=== PATIENT | female | born 2000 | race Caucasian/White ===

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

== ENCOUNTER 2021-01-31 16:00 | Outpatient (RCR) | payer MEDICAID, SELFPAY | END 2021-01-31 23:59 | disposition home or self-care (01) | LOC: DC 16:00 | PROVIDERS: PCP Dentist; Visit Provider Obstetrics & Gynecology | DX: O24.410 Gestational diabetes mellitus in pregnancy, diet controlled (principal); Z3A.00 Weeks of gestation of pregnancy not specified | CPT/HCPCS: 97802 ==

== ENCOUNTER 2021-03-11 05:40 | Inpatient (IN) | payer MEDICAID, SELFPAY ==
[2021-03-11] VITALS (22 sets, daily range): BP systolic 103–140; BP diastolic 46–82; PULSE 71–98; RESP 12–22; TEMP 36.1–36.9; O2SAT 95–99; BMI 38.4
[2021-03-11] MEDS: Lactated Ringers 1,000 ML 999 ML IV (06:00)
[2021-03-11 06:09] LABS: Absolute Lymphocyte Count 2.45 X10^3/uL (0.83-4.51); Absolute Neutrophil Count 6.7 X10^3/uL (2.0-7.7); Basophil# 0.02 X10^3/uL; Basophil% 0.2 % (0-1); Eosinophil# 0.08 X10^3/uL; Eosinophils% 0.8 % (0-5); Hematocrit 37.6 % (37-47); Lymphocyte # 2.45 X10^3/ul (0.83-4.51); Lymphocyte % 24.5 % (19-41); Mean Corp Hgb Conc 31.9 g/dL (32-36); Mean Corpuscular Hgb 27.5 pg (27.0-32.0); Mean Platelet Vol. 10.9 fl (6.2-12.0); Monocyte# 0.75 X10^3/uL; Monocyte% 7.5 % (0-10); NRBC Flagged by Analyzer 0 % (0-5); Neutrophil # 6.68 X10^3/uL (2.7-7.7); Neutrophil % 66.6 % (47-70); Platelet Count 269 K/mm3 (150-450); RBC Distribution Width CV 13.7 % (11.6-14.6); RBC Distribution Width SD 42.4 fl (35.1-43.9); Red Blood Count 4.37 M/mm3 (4.2-5.4)
[2021-03-11 06:11] LABS: Bedside Glucose 86 mg/dL (70-110)
[2021-03-11] MEDS: Acetaminophen 500 MG Tablet 1000 MG PO ×3 (06:37→18:43)
[2021-03-11 07:01] LABS: Amphetamine Urine VISTA NEGATIVE (<1000 ng/mL); Barbiturate Urine VISTA NEGATIVE (< 200 ng/mL); Benzodiazepine Urine VISTA NEGATIVE (< 200 ng/mL); Cocaine Urine VISTA NEGATIVE (< 300 ng/mL); Ecstacy Urine VISTA NEGATIVE (< 500 ng/mL); Methadone Urine VISTA NEGATIVE (< 300 ng/mL); PCP Urine VISTA NEGATIVE (< 25 ng/mL); THC Urine VISTA NEGATIVE (< 50 ng/mL); Vista UDS pH Range 6
[2021-03-11] MEDS: Lactated Ringers 1,000 ML 150 ML IV (07:01)
[2021-03-11] MEDS: Sodium Citrate/Citric Acid 30 ML UDC PO (07:06)
--- NOTE | 2021-03-11 07:36 | PCM.HP.OB ---
HPI - General General Date of Admission: 03/11/21 HPI Narrative FOZIA CRAWFORD, is a 20 F who presents for repeat . Maternal Data Information Final NUVIA: 03/26/21 Gestational age: 37&6 [facility] Medical History (Updated 03/11/21 @ 07:[address] Eliot Fisher MD) Anxiety Depression Gestational diabetes Home Medications Prenatabs FA 1 tab PO DAILY 11/14/17 [History Last Taken 03/10/21] aspirin [Jocelyn Childrens Aspirin] 81 mg PO DAILY 03/11/21 [History Last Taken 03/09/21] insulin NPH isoph U-100 human [Novolin N NPH U-100 Insulin] 10 unit SUBCUT BREAKFAST 03/11/21 [History Last Taken 03/10/21] insulin NPH isoph U-100 human [Novolin N NPH U-100 Insulin] 16 unit SUBCUT QHS 03/11/21 [History Last Taken 03/10/21] Allergy/AdvReac Type Severity Reaction Status Date / Time cefprozil AdvReac Rash Verified 11/16/17 13:39 Surgical History (Updated 03/11/21 @ 06:24 by Viry Ventura) Previous section Social History Smoking Status: Never smoker History Elective abortions Hx Para 1 Spontaneous abortions Hx # Term Pregnancies Ectopic pregnancies Hx # Pregnancies Multiple births # of living children Vital Signs Vital Signs Vital Signs: 03/11/21 05:40 Temperature 97.4 F L Temperature Source Temporal Pulse Rate 95 Respiratory Rate 18 Blood Pressure 140/82 H Blood Pressure Mean 101 Blood Pressure Source Monitor Blood Pressure Position Semi-Fowlers Blood Pressure Location Left Arm Oxygen Delivery Method Room Air Weight Weight: 210 lb Body Mass Index (BMI) 38.4 Labs Labs Labs: Blood Type A POSITIVE Antibody Screen NEGATIVE Hct 37.6 % (37-47) Hgb 12.0 g/dL (12.0-15.0) Rhogam given: No Miscellaneous Test See [facility] prenatals Assessment & Plan (1) Gestational diabetes mellitus (GDM) requiring insulin: (2) Encounter for maternal care for low transverse scar from repeat delivery: COMMENT: 37&6 PLAN: Admit to L&D Repeat GDM - PP glucose monitoring Routine care Social work consult
--- NOTE | 2021-03-11 08:31 | EX.PCM.OBRPT ---
Maternal Data Information Final NUVIA: 03/[birth year]21 Details Operative Information Date of Procedure: 03/11/21 Pre-Operative Diagnosis: (1) Prior section (2) Uncontrolled gestational diabetes (3) 37&6 week Post-Operative Diagnosis: Same Indications for : Repeat Elective Classification: Scheduled Procedure Type: low transverse sales planning coordinator #1: Jay Cash Type of Anesthesia: Spinal Antibiotic Given: Clindamycin 600mg IV x1 and Gentamicin 1.5mg/kg IV x1 Drain: Nicolas to straight drain Estimated Blood Loss: 700ml Fluids Replaced: 1000ml Procedure Start Time: 07:59 Procedure Stop Time: 08:38 Findings Description of Procedure: The patient was taken to the operating room where spinal anesthesia was placed. She was prepped and draped in the dorsal supine position with a leftward tilt. A Pfannenstiel skin incision was made approximately 2 cm above the symphysis pubis and carried through to underlying layer fascia with the scalpel. The fascia was incised incised in the midline and extended laterally with the Pettit scissors. The rectus muscles were in the midline and the peritoneum was entered carefully and bluntly. The peritoneal incision was stretched and the bladder blade was placed. The uterine incision was made in a low transverse fashion with the scalpel and extended superiorly and inferiorly with blunt dissection. The infant's head was brought to the incision in the flexed position and delivered without difficulty (after using bandage scissors to extend the incision on the right side by cutting the rectus muscles carefully). The remainder of the was delivered with gentle traction and fundal pressure in the standard fashion. The cord was clamped and cut as the infant was stimulated. Cord clamping was delayed. The was handed off to the waiting nursing staff. The placenta was delivered with fundal massage and gentle traction in the standard fashion. The uterus was unable to be exteriorized due to adhesions thus was cleared of all clots and debris while in the pelvis. The uterine incision was closed with sa #1 Vicryl suture in a running locked fashion. Monocryl suture was used in an imbricating fashion. The incision was examined and was found to be hemostatic. After irrigating suleman was placed over the uterine incision as some tissue was denuded. The rectus muscles were examined and any bleeding was Bovie cauterized. The right rectus muscles were reapproximated using vicryl. The surgical teams outer gloves were then changed. The rectus fascia was examined and any bleeding was Bovie cauterized and the rectus fascia was closed with PDS suture in a running standard fashion. The subcutaneous tissue was examining and any bleeding was Bovie cauterized. The subcutaneous tissue was reapproximated with 3-0 Vicryl suture. The skin was closed in a subcuticular fashion. All sponge, lap, and needle counts were correct. The patient was taken to her room for recovery in a stable condition. Presentation: Positive for Vertex Amniotic Membrane Rupture Type: Artificial Amniotic Fluid Description: Clear Placental Delivery Description: Expressed Placenta Disposition: [facility] Cord Vessel Description: 3 Vessels Cord Entanglement: None A Gender: Female (Carlita) (1 minute): 9 (5 minute): 9 Delayed Cord Clamping: Yes
[2021-03-11] MEDS: Oxytocin 30 units/NS 500 ml 30 UNITS/500 ML IV.SOLN 167 UNITS IV (08:50)
[2021-03-11] MEDS: Ketorolac 30 MG/ML Syringe IV ×3 (09:11→21:45)
[2021-03-11] MEDS: Lactated Ringers 1,000 ML 100 ML IV (12:03)
--- NOTE | 2021-03-11 12:25 | NURSING ---
Patient's affect is flat. When asked questions by this RN, patient gives one word responses.
--- NOTE | 2021-03-11 14:39 | NURSING ---
Report given to Maria D Vaughn RN who will now assume care of this couplet at this time.
[2021-03-11] MEDS: 0.9% Saline Lock 10 ML Syringe IV ×2 (18:43→21:45)
[2021-03-11] MEDS: Enoxaparin 40 MG/0.4 ML Syringe SC (21:45)
[2021-03-12] VITALS (8 sets, daily range): BP systolic 109–130; BP diastolic 58–68; PULSE 62–84; RESP 16–18; TEMP 36–36.9; O2SAT 97–100
[2021-03-12] MEDS: Acetaminophen 500 MG Tablet 1000 MG PO ×3 (00:38→13:38)
[2021-03-12] MEDS: Senna/Docusate Sodium 1 Tablet PO (00:46)
--- NOTE | 2021-03-12 02:18 | NURSING ---
This RN assuming care of patient and infant at this time. Report received from Elina Perez RN
[2021-03-12] MEDS: Ketorolac 30 MG/ML Syringe IV (03:32)
[2021-03-12 06:04] LABS: Hematocrit 38.7 % (37-47); Hemoglobin 12.4 g/dL (12.0-15.0); Mean Corpuscular Hgb 27.8 pg (27.0-32.0); Mean Corpuscular Volume 86.8 fL (81-99); Mean Platelet Vol. 10.7 fl (6.2-12.0); Platelet Count 271 K/mm3 (150-450); RBC Distribution Width SD 43.9 fl (35.1-43.9); Red Blood Count 4.46 M/mm3 (4.2-5.4); White Blood Count 8.3 K/mm3 (4.4-11.0)
[2021-03-12 06:05] LABS: Bedside Glucose 90 mg/dL (70-110)
--- NOTE | 2021-03-12 06:10 | NURSING ---
Fasting blood sugar obtained by this RN for result of 90.
[2021-03-12] MEDS: Enoxaparin 40 MG/0.4 ML Syringe SC (09:39)
[2021-03-12] MEDS: Ibuprofen 600 MG Tablet PO ×2 (09:40→15:42)
--- NOTE | 2021-03-12 15:42 | PCM.DC.SUM ---
Providers Date of Admission: 03/11/21 Primary Care Physician: Dr. Ashley Ellsworth MD Reason For Visit: REPEAT C SECTION Diagnosis Discharge Diagnosis (1) Gestational diabetes mellitus (GDM) requiring insulin: Status: Acute Code(s): O24.414 - Gestational diabetes mellitus in , insulin controlled (2) Encounter for maternal care for low transverse scar from repeat delivery: Status: Acute Code(s): O34.211 - Maternal care for low transverse scar from previous delivery Medications at Discharge Home Medications Prenatabs FA 1 tab PO DAILY 11/14/17 Hospital Course Operations section (Repeat) Summary of Care Provided Hospital Course: Patient here for repeat C/S. Hospital course uneventful. Physical Exam Const alert, oriented x3 and no apparent distress General Appearance: cooperative Orientation / Consciousness: awake Exam Limitations: no limitations HEENT normocephalic Head and Scalp: normal to inspection Eyes General Eye: normal appearance of both eyes Neck full ROM and no lymphadenopathy Lymph Lymphatic: no lymphadenopathy noted Chest inspection of chest normal Resp normal respiratory effort, normal air movement and clear to auscultation bilaterally Effort and Inspection: able to speak in complete sentences and symmetric chest movement Cardio regular rate and regular rhythm GI normal to inspection, nondistended, normoactive bowel sounds Extremity full ROM and no calf tenderness Skin no rashes or lesions noted Skin Narrative: Dressing dry and intact General Skin Exam: no breakdown Neuro oriented x3 and CN's II-XII intact bilaterally Psych denies suicidal ideation Appearance: appropriate Activity / Motor Behavior: appropriate eye contact Mood & Affect: tearful and flat affect Thought Process: normal thought process Thought Content: normal thought content Weight / BMI Weight Weight: 210 lb Body Mass Index (BMI) 38.4 ABG / Lab / Microbiology Data Result Diagrams: 03/12/21 05:55 Laboratory: Laboratory Results - last 24 hr 03/12/21 03/12/21 05:55 05:55 WBC 8.3 RBC 4.46 Hgb 12.4 Hct 38.7 MCV 86.8 MCH 27.8 MCHC 32.0 RDW Std Deviation 43.9 RDW Coeff of Gina 14.0 Plt Count 271 MPV 10.7 POC Glucose 90 Microbiology: Microbiology 03/11/21 06:10 Mucosa - Nose SARS-CoV-2 Antigen (Rapid) - Final D/C Instructions Discharge Diet: No restrictions May resume sexual activity in: 6-8 weeks Weight Bearing Status: Weight bearing as tolerated Lifting Restrictions: 20 lbs Call your doctor if your incision/area has: Continuous Slow Oozing, Increased Pain/ Swelling, Increased Redness, Foul Smelling Discharge and Swelling at the incision site Call your doctor if you observe: Fever of 101 or Higher, Inability to urinate, Using more than 1 pad per hour, Shortness of breath, Chest pain, Calf discomfort and Uncontrolled pain Remove Dressing in: 5 days Cleanse incision/area with: Soap & Water and Keep Dressing Clean & Dry When: 1 week in office for incision check or sooner if needed 6 weeks Meaningful Use Info Meaningful Use Diagnoses (Choose all that apply): None applicable Discharge Plan Admission Admit Date/Time: 03/11/21 05:40 Primary Reason for Your Visit: Repeat C/S Attending Provider: Eliot Fisher Primary Care Provider: Ashley Ellsworth Instructions Patient Instructions: Depression, Depression: Treatment, Gestational Diabetes After ... Additional Instructions / Restrictions: Patient needs to be seen in office in 1 week for incision check Discharge Orders/Prescriptions Prescriptions: Continued Prenatabs FA 1 TABLET tablet 1 tab PO DAILY RF: 0 Discontinued Novolin N NPH U-100 Insulin 100 unit/mL Suspension 16 unit SUBCUT QHS RF: 0 Novolin N NPH U-100 Insulin 100 unit/mL Suspension 10 unit SUBCUT BREAKFAST RF: 0 aspirin [Jocelyn Childrens Aspirin] 81 mg Tablet,Chewable 81 mg PO DAILY RF: 0 Referrals / Follow Up: Ashley Ellsworth MD [Primary Care Provider] - Disposition Disposition (needs filled in before D/C Order can be placed): Home, Self Care
== END 2021-03-12 17:50 | disposition home or self-care (01) | DRG 540 ==
PROVIDERS: Admitting Provider Obstetrics & Gynecology; PCP Pediatrics; Visit Provider Obstetrics & Gynecology
PROC: 10D00Z1 Extraction of Products of Conception, Low, Open Approach (ICD-10-PCS; CPT 59514; principal; 2021-03-11 07:15)
DX: O34.211 Maternal care for low transverse scar from previous cesarean delivery (principal); Z3A.37 37 weeks gestation of pregnancy; Z37.0 Single live birth; O24.424 Gestational diabetes mellitus in childbirth, insulin controlled; Z79.82 Long term (current) use of aspirin; Z79.4 Long term (current) use of insulin
CPT/HCPCS: 80307; 82962; 85025; 85027; 86850; 86900; 86901; 87426; 99218; 99251; J7120; A4216; G0378; G0463; J2405

== ENCOUNTER 2022-10-21 21:39 | Emergency (ER) | payer MEDICAID, SELFPAY ==
[2022-10-21 21:40] VITALS: BP 126/63; PULSE 106; RESP 16; TEMP 36.4; O2SAT 97; BMI 32.9
--- NOTE | 2022-10-21 22:05 | EDS_ITS ---
HPI History of Present Illness Chief Complaint: Nausea/Vomiting Detail of Chief Complaint: Abdominal pain with nausea, vomiting and diarrhea that started at 0430 Informant: patient Onset/Context/Timing Onset: Today Context: Sudden Onset Timing: Intermittent Quality: Colicky Location: Generalized Current Severity: Mild Maximum Severity: Moderate Worsened by: Vomiting diarrhea Relieved by: None thing Associated Symptoms Associated Symptoms: Thirst, dry mouth and lightheadedness Narrative Narrative: Is a 22-year-old G0, P0 woman whose last normal menstrual period ended 2 days ago. She does have a implant for prevention. She denies objective fever. She complains of subjective fever. She also reported chills. She denies headache. She denies photophobia. She denies ocular visual auditory symptoms. She does endorse dry mouth, thirst and orthostatic symptoms. She denies respiratory or cardiac symptoms. She complains of generalized crampy abdominal pain. She also reports diarrhea. Her last loose stool was 1 hour ago. She has not noted any blood or mucus in the diarrhea. She has not noted blood or coffee grounds in her emesis. She does endorse decreased urine output. She denies dysuria or hematuria. She denies rash. She has myalgias arthralgias. She denies eating anything that tasted unusual To her. Prior similar symptoms: Yes Recent Illness/Hospitalization: No PFSH PFSH Medical History Anxiety Depression Gestational diabetes Home Medications vits,calcium no.78-iron fumarate-folic acid 29 mg-1 mg tablet (Prenatabs FA) 1 tab PO DAILY 11/14/17 [History Last Taken 03/10/21] Allergy/AdvReac Type Severity Reaction Status Date / Time cefprozil AdvReac Rash Verified 10/21/22 21:41 Surgical History Previous section Social History (Updated 10/21/22 @ 22:[address] Chad Shipley MD) household members: family Smoking Status: Never smoker ROS ROS ED Constitutional Constitutional ED: Reports chills, fever(s) and subjective Eyes Eyes: Denies blurry vision, change in vision or diplopia ENT ENT ED: Denies ear pain, rhinorrhea or sore throat Cardiovascular Cardiovascular: Denies chest pain, palpitations or racing heartbeat Respiratory/Chest Respiratory/Chest: Denies cough, dyspnea or dyspnea on exertion Gastrointestinal Gastrointestinal: Reports abdominal pain, diarrhea, nausea and vomiting Genitourinary Genitourinary ED: Denies dysuria, hematuria or urinary frequency Musculoskeletal Musculoskeletal: Denies arthralgias or myalgias Integumentary Denies rash Neurologic Neurologic: Reports weakness; Denies headache(s) or paresthesias Endocrine Endocrinology: Denies cold intolerance or heat intolerance Hematologic/Lymphatic Hematologic/Lymphatic: Reports systems reviewed and no addt'l complaints, except as documented EXAM Physical Exam Const Vital Signs: 10/21/22 21:40 Temperature 97.5 F L Temperature Source Temporal Pulse Rate 106 H Respiratory Rate 16 Blood Pressure 126/63 H Blood Pressure Mean 84 Pulse Ox 97 Oxygen Delivery Method Room Air Positive well nourished and well developed Constitutional Narrative: Does not help. General Appearance ED: well developed, NAD and pallor HEENT Reports dry mucous membranes HEENT Narrative: Posterior pharynx unremarkable. Ears normal. Nares patent. Head is atraumatic. Mouth ED: Yes dry mucous membranes Mouth: dry mucous membranes Eyes PERRL and EOMs intact bilaterally General Eye ED: Negative for pale conjunctiva or scleral icterus Neck no lymphadenopathy, supple and no JVD Chest Wall inspection of chest normal and palpation of chest normal Resp normal respiratory effort and clear to auscultation bilaterally Cardio regular rhythm, S1 normal heart sound, S2 normal heart sound and no murmurs Rate: tachycardic GI normal to inspection, nondistended, normoactive bowel sounds, non-tender, non- distended and no masses; Negative for hepatosplenomegaly Palpation: soft Back/Spine no CVA tenderness Extremity normal to inspection General Extremety ED: Negative for edema or tenderness General Extremity: Negative for edema Neuro oriented x3, CN's II-XII intact bilaterally and no sensory deficits noted Sensorium / Orientation: alert Psych mental status grossly normal Skin no rashes or lesions noted, no wounds and skin turgor normal General Skin Exam: pallor; Negative for jaundice MDM MDM MDM Narrative Medical decision making narrative: Presents with symptoms consistent with viral gastroenteritis. Based on literature and study from 10 years ago since she is under the age of 40 on no diuretics and no history of diabetes laboratory studies are not indicated. Will hydrate and treat with Zofran and Imodium for her nausea/vomiting and diarrhea respectively. Will reassess after 1 L of normal saline has infused and patient will undergo p.o. challenge. Patient's nausea has improved. She had no diarrhea during her stay at the time of reevaluation 2307. Patient has received only 250 cc of her fluid bolus. Patient was reassessed at 0003. She is asleep. She is difficult to arouse. 750 cc of the 1 L has infused. She has had no vomiting or diarrhea to this point. Patient's heart rate did improve with fluids. Patient is now awake. She states she needs to urinate. Therefore, will discharge to home. Discharge Plan Triage Chief Complaint: Nausea/Vomiting ED Provider: Chad Shipley Dx/Rx/DC Orders Clinical Impression: Abdominal pain, vomiting, and diarrhea, Acute dehydration, Sinus tachycardia Instructions: ED Vomiting and Diarrhea ... Prescriptions: No Action Prenatabs FA 1 TABLET tablet 1 tab PO DAILY Primary Care Provider: Care Physician,No Primary Referrals: Ashley Ellsworth MD [Non-Staff] - 1-2 Days if not improving Disposition Disposition: Home, Self Care
[2022-10-21] MEDS: Ondansetron 4 MG/2 ML Vial IV (22:06)
[2022-10-21] MEDS: 0.9% Normal Saline 1,000 ML 1000 ML IV (22:06)
[2022-10-21] MEDS: Loperamide 2 MG Capsule 4 MG PO (22:06)
[2022-10-22 00:08] VITALS: BP 115/78; PULSE 89; RESP 18; TEMP 36.6; O2SAT 99
== END 2022-10-22 00:12 | disposition home or self-care (01) ==
PROVIDERS: Emergency Provider Emergency Medicine; Visit Provider Emergency Medicine
DX: R10.9 Unspecified abdominal pain (principal); R11.2 Nausea with vomiting, unspecified; R19.7 Diarrhea, unspecified; E86.0 Dehydration; R00.0 Tachycardia, unspecified
CPT/HCPCS: 96374; 99284; J2405

== ENCOUNTER 2023-07-17 19:23 | Emergency (ER) | payer MEDICAID, SELFPAY ==
[2023-07-17 19:23] VITALS: BP 133/65; PULSE 71; RESP 16; TEMP 36.5; O2SAT 99; BMI 34.5
--- NOTE | 2023-07-17 20:19 | ED.VIS.GI ---
HPI HPI - GI History of Present Illness Chief Complaint: GI Bleed Informant: patient Narrative Narrative: 23-year-old female presenting to the emergency department with rectal bleeding. Patient is approximately 13 weeks . She follows with [facility] obstetrics. Patient states for the past week she has had bright red blood per the rectum. She notes some rectal discomfort with bowel movements. She has had about 1 bowel movement per day. She states she does not normally have to strain or sit for prolonged periods. She notes that her previous 2 pregnancies were delivered by . She does not not recall a history of external hemorrhoids or rectal bleeding in the past. No abdominal pain. No vaginal bleeding or leakage of fluid. [facility] Medical History Anxiety Depression Gestational diabetes Home Medications vits,calcium no.78-iron fumarate-folic acid 29 mg-1 mg tablet (Prenatabs FA) 1 tab PO DAILY 11/14/17 [History Last Taken 03/10/21] Allergy/AdvReac Type Severity Reaction Status Date / Time cefprozil AdvReac Rash Verified 10/21/22 21:41 Surgical History Previous section Social History household members: family Smoking Status: Never smoker ROS ROS ED Constitutional Constitutional ED: Denies chills or weight loss Eyes Eyes: Denies change in vision or diplopia ENT ENT ED: Denies ear pain, rhinorrhea or sore throat Cardiovascular Cardiovascular: Denies chest pain, orthopnea, palpitations or racing heartbeat Respiratory/Chest Respiratory/Chest: Denies cough, dyspnea or orthopnea Gastrointestinal Gastrointestinal: Reports other Details: Bright red blood per rectum Rectal pain ; Denies abdominal pain, diarrhea, nausea or vomiting Genitourinary Genitourinary ED: Denies dysuria, hematuria or urinary frequency Musculoskeletal Musculoskeletal: Denies arthralgias or myalgias Integumentary Denies abscess or rash Neurologic Neurologic: Denies headache(s) or weakness Psychiatric Psychiatric: Denies anxiety, depression, suicidal ideation or suicidal thoughts Endocrine Endocrinology: Denies polydipsia, polyphagia or polyuria Allergic/Immunologic Allergic/Immunologic ED: Denies mouth swelling, tongue swelling or urticaria EXAM Physical Exam Const Vital Signs: 07/17/23 19:23 Temperature 97.7 F L Temperature Source Temporal Pulse Rate 71 Respiratory Rate 16 Blood Pressure 133/65 H Blood Pressure Mean 87 Pulse Ox 99 Oxygen Delivery Method Room Air Positive well nourished and well developed General Appearance ED: well developed HEENT Reports normocephalic, head/scalp atraumatic and moist mucous membranes Eyes PERRL and EOMs intact bilaterally Neck no lymphadenopathy, supple and no JVD Resp normal respiratory effort and clear to auscultation bilaterally Cardio regular rate, regular rhythm and no murmurs GI normal to inspection, nondistended, normoactive bowel sounds and non-tender Palpation: soft Narrative: Rectal examination performed in the presence of female nurse (Pepper). There is a obvious anal fissure at about the 4 o'clock position. Mild bleeding when I open the tissue. Back/Spine no CVA tenderness and normal ROM Extremity normal to inspection General Extremety ED: Negative for edema General Extremity: Negative for edema Neuro oriented x3 and CN's II-XII intact bilaterally Sensorium / Orientation: alert Motor Exam: strength 5/5 throughout Psych mental status grossly normal Mood & Affect: Negative for depressed or tearful Skin no rashes or lesions noted and no wounds MDM MDM MDM Narrative Medical decision making narrative: Patient will be treated conservatively. At this point would recommend follow-up if not improving return if worsening Discharge Plan Triage Chief Complaint: GI Bleed ED Provider: Bharath Pickard Dx/Rx/DC Orders Clinical Impression: Bright red rectal bleeding, Second trimester , Acute anal fissure Instructions: ED Understanding Anal Fissures Prescriptions: No Action Prenatabs FA 1 TABLET tablet 1 tab PO DAILY Primary Care Provider: Care Physician,No Primary Referrals: Care Physician,No Primary [Primary Care Provider] - Activity Restrictions/Additional Instructions: Please follow-up with your [employer]. Please limit the amount of time you are sitting. Do not strain for bowel movements. Disposition Disposition: Home, Self Care Discharge Date/Time: 07/17/23 19:56
== END 2023-07-17 19:56 | disposition home or self-care (01) ==
LOC: ED 19:53
PROVIDERS: Emergency Provider Emergency Medicine; Visit Provider Emergency Medicine
DX: O99.611 Diseases of the digestive system complicating pregnancy, first trimester (principal); K92.2 Gastrointestinal hemorrhage, unspecified; K60.0 Acute anal fissure; Z3A.13 13 weeks gestation of pregnancy
CPT/HCPCS: 99282

== ENCOUNTER 2023-12-31 09:52 | Inpatient (IN) | payer MEDICAID, SELFPAY ==
[2023-12-31] VITALS (16 sets, daily range): BP systolic 89–144; BP diastolic 54–97; PULSE 79–94; RESP 15–19; TEMP 36.1–37.1; O2SAT 93–100; BMI 40.9
--- NOTE | 2023-12-31 | FALS_PTH ---
PATIENT: FOZIA CRAWFORD LOC: [facility] U#:[id number] AGE/SX: 23 ROOM: WP004 RE12/31/[address]: Dr. Ana M Navarro DO : 2000 BED: 1 DIS: 01/03/2024 SPEC #: [id number] RECD: 01/01/24 09:27 STATUS: AMISH EUNICE #: [id number] JAMAL: 12/31/23 00:[address]: Ana M Navarro DEPT: SURGICAL PATHOLOGY RECD BY: Aditya Ren ENTERED: 01/01/24 09:27 SP TYPE: FALL TUBES OTHR DR: Kitty Primary Care Phys Tissues: Fallopian tube Procedures: Surgery Specimen Level II HEADER OPERATION: Tubal ligation PRE-OP DIAGNOSIS: Sterilization TISSUE SUBMITTED: Fallopian tubes MICROSCOPIC DIAGNOSIS Right fallopian tube, salpingectomy: Complete cross section of benign fallopian tube. Benign paratubal cyst. Left fallopian tube, salpingectomy: Complete cross section of fallopian tube with no pathologic change. AM: 01/04/24 MICROSCOPIC DESCRIPTION Slides are reviewed. GROSS DESCRIPTION Received in fixative is one container labeled with the patient's name and designated bilateral fallopian tubes- right tube with stitch. The specimen consists of bilateral fallopian tubes including fimbrial ends. Right fallopian tube measures 6.0 cm in length and 0.8 cm in diameter. A paratubal cyst is noted measuring 1.9 x 1.5 x 1.2cm. The left fallopian tube measures 5.5cm in length and 0.6cm in diameter. Sections reveal unremarkable cut surfaces. Water Meter Mechanic sections are submitted in two cassettes with each cassette containing one fallopian tube. 1- right fallopian tube and paratubal cyst, 2- left fallopian tube / SJ: 01/01/24 TC:5 CPT: 04613 x2, 35143
[2023-12-31] MEDS: Lactated Ringers 1,000 ML 999 ML IV (10:10)
[2023-12-31] MEDS: Acetaminophen 500 MG Tablet 1000 MG PO ×3 (10:23→23:20)
[2023-12-31 10:33] LABS: Absolute Lymphocyte Count 2.17 X10^3/uL (0.83-4.51); Absolute Neutrophil Count 6.6 X10^3/uL (2.0-7.7); Basophil# 0.02 X10^3/uL; Basophil% 0.2 % (0-1); Eosinophil# 0.06 X10^3/uL; Eosinophils% 0.6 % (0-5); Hematocrit 32.7 % (37-47); Hemoglobin 10.2 g/dL (12.0-15.0); Lymphocyte # 2.17 X10^3/ul (0.83-4.51); Lymphocyte % 22.3 % (19-41); Mean Corp Hgb Conc 31.2 g/dL (32-36); Mean Corpuscular Hgb 25.3 pg (27.0-32.0); Mean Corpuscular Volume 81.1 fL (81-99); Mean Platelet Vol. 11.2 fl (6.2-12.0); Monocyte# 0.85 X10^3/uL; Monocyte% 8.7 % (0-10); NRBC Flagged by Analyzer 0 % (0-5); Neutrophil % 67.8 % (47-70); Platelet Count 341 K/mm3 (150-450); RBC Distribution Width CV 15.3 % (11.6-14.6); RBC Distribution Width SD 44.7 fl (35.1-43.9); Red Blood Count 4.03 M/mm3 (4.2-5.4); White Blood Count 9.7 K/mm3 (4.4-11.0)
[2023-12-31] MEDS: Lactated Ringers 1,000 ML 150 ML IV (11:15)
[2023-12-31 11:17] LABS: Amphetamine Urine NEGATIVE (<1000 ng/mL); Barbiturate Urine NEGATIVE (< 200 ng/mL); Benzodiazepine Urine NEGATIVE (< 200 ng/mL); Cocaine Urine NEGATIVE (< 300 ng/mL); Ecstacy Urine NEGATIVE (< 500 ng/mL); Methadone Urine NEGATIVE (< 300 ng/mL); Opiates Urine NEGATIVE (< 300 ng/mL); PCP Urine NEGATIVE (< 25 ng/mL); THC Urine NEGATIVE (< 50 ng/mL); Vista UDS pH Range 6
[2023-12-31 11:32] LABS: Syphilis Antibodies Non-reactive
[2023-12-31] MEDS: Sodium Citrate/Citric Acid 30 ML UDC PO (11:40)
[2023-12-31] MEDS: Clindamycin 900 MG/50 ML BAG 75 MG IV (12:18)
--- NOTE | 2023-12-31 12:22 | HP.PCM.OB_ITS ---
HPI - General General Date of Admission: 12/31/23 Date of Service: 12/31/23 Chief Complaint: repeat C/S HPI Narrative FOZIA CRAWFORD, is a 23 F who presents for repeat C/S. [facility] Medical History (Updated 12/31/23 @ 12:[address] Ana M Navarro DO) Anxiety Bipolar 1 disorder Depression Gestational diabetes Substance abuse Home Medications vits,calcium no.78-iron fumarate-folic acid 29 mg-1 mg tablet (Prenatabs FA) 1 tab PO DAILY 11/14/17 [History Last Taken 12/30/23 09:00] amoxicillin 500 mg capsule 500 mg PO TID uti 12/31/23 [History Last Taken 12/30/23 22:00] aspirin 81 mg chewable tablet (Aspirin Childrens) 1 tab PO DAILY 12/31/23 [History Last Taken Unknown] Allergy/AdvReac Type Severity Reaction Status Date / Time cefprozil AdvReac Rash Verified 12/31/23 09:57 Surgical History Previous section Social History household members: family Smoking Status: Never smoker History Elective abortions Hx Para 2 Spontaneous abortions Hx # Term Pregnancies Ectopic pregnancies Hx # Pregnancies Multiple births # of living children Vital Signs Vital Signs Vital Signs: 12/31/23 11:02 12/31/23 10:07 12/31/23 10:07 Temperature 97 F L Temperature Source Temporal Temporal Pulse Rate 94 Respiratory Rate 18 Blood Pressure 140/81 H 140/81 H Blood Pressure Mean 100 BP Systolic 140 BP Diastolic 81 Blood Pressure Source Monitor Blood Pressure Position Semi-Fowlers Blood Pressure Location Right Arm Pulse Ox 100 Oxygen Delivery Method Room Air 12/31/23 10:07 12/31/23 10:07 12/31/23 10:07 Temperature Temperature Source Pulse Rate 94 Respiratory Rate 16 Blood Pressure Blood Pressure Mean BP Systolic BP Diastolic Blood Pressure Source Blood Pressure Position Blood Pressure Location Pulse Ox 100 Oxygen Delivery Method 12/31/23 10:07 Temperature 97.0 F L Temperature Source Pulse Rate Respiratory Rate Blood Pressure Blood Pressure Mean BP Systolic BP Diastolic Blood Pressure Source Blood Pressure Position Blood Pressure Location Pulse Ox Oxygen Delivery Method Weight Weight: 224 lb Body Mass Index (BMI) 40.9 Labs Labs Labs: Blood Type A POSITIVE Antibody Screen NEGATIVE Hct 32.7 % (37-47) L Hgb 10.2 g/dL (12.0-15.0) L Syphilis Total Ab Non-reactive Rhogam given: No Miscellaneous Test Assessment & Plan (1) 37 weeks gestation of : PLAN: Discussed r/b/a repeat section with sterilization and consent signed. Delivery at 37 wk for gHTN. Unknown glucose control A1GDM but was not checking BG regularly in . H/o amphetamine use so drug screen on admission. 2 prior sections and requests sterilization. (2) Gestational hypertension: (3) History of pre-eclampsia: (4) History of drug use: (5) Request for sterilization:
[2023-12-31] MEDS: Gentamicin IV 250 MG in Dextrose 5%-Water (50mL Bag) 50 ML 100 MG IVPB (12:38)
[2023-12-31 13:51] LABS: Bedside Glucose 81 mg/dL (74-106)
[2023-12-31] MEDS: Oxytocin 15 Units/NS 250ml 15 UNITS/250 ML IV.SOLN 83 UNITS IV (14:00)
[2023-12-31] MEDS: Ketorolac 30 MG/ML Syringe IV ×2 (14:18→20:13)
[2023-12-31 14:50] LABS: Pathology Specimen OB SEE PATHOLOGY REPORT
[2023-12-31 15:04] LABS: Bedside Glucose 88 mg/dL (74-106)
[2023-12-31] MEDS: AMOXICILLIN 500 MG CAPSULE PO ×2 (15:54→21:32)
[2023-12-31] MEDS: Lactated Ringers 1,000 ML 100 ML IV (17:03)
--- NOTE | 2023-12-31 17:42 | OP.PCM_ITS ---
Problems Associated Problem List Diagnoses (1) Request for sterilization: (2) History of drug use: (3) History of pre-eclampsia: (4) Gestational hypertension: (5) 37 weeks gestation of : (6) Bipolar disorder: (7) S/P repeat low transverse : (8) Gestational diabetes: Report of Operation Date of Procedure: 12/31/23 Pre-Operative Diagnosis: 37 week gestation, gHTN versus pre eclampsia without severe features, A1GDM but patient not checking blood sugars, history drug use, history 2 prior sections, bipolar disorder, request for sterilization Post-Operative Diagnosis: As above Surgery/Procedure Performed:: RLTCS via pfannenstiel incision Bilateral salpingectomy Description of Surgical Findings:: Moderate adhesive disease. Fascia adhered to rectus muscles. Bladder adhered to mid uterus. Clear fluid. VFI in cephalic presentation with loose nuchal cord x 1. Placenta normal appearing. Normal uterus and bilateral adnexa. Surgeon: Ana M Navarro green building engineer: Jordan LANCASTER Type of Anesthesia: Spinal Special Medications: None Specimen's removed: Placenta Bilateral fallopian tubes Drains: Nicolas Estimated Blood Loss (mL): 800 Fluids Replaced: 1500 mL Description of Procedure: Patient was taken to the operating room were spinal anesthesia was found be adequate. She was prepped and draped in the dorsal supine position with leftward tilt. A Pfannenstiel skin incision was made with the scalpel and carried down to the underlying layer of fascia. The fascia was incised in midline. The fascial incision was extended laterally using bolivar scissors. The fascia was dissected off the rectus muscles in a cephalad and caudad direction. The rectus muscles were in the midline. The peritoneum was entered bl untly and extended bluntly with lateral traction with visualization of the bladder. The bladder was adhered to the midportion of the uterus. Metzenbaum scissors were used to dissect the bladder off of the uterus and create a bladder flap. A low transverse incision was made on the uterus with a scalpel. Membranes were ruptured for clear fluid. The uterine incision was extended with traction cephalad and caudad. A vigorous viable female infant was delivered in cephalic presentation without any traction, force, or delay. A loose nuchal cord x 1 was noted and reduced at time of delivery. The cord was clamped and cut after slight delay and the was handed off to waiting nursery staff. The placenta was removed with manual extraction the uterus was cleared of all clot and debris. The uterus was exteriorized. The hysterotomy was closed with one 1-0 Vicryl in a running locked fashion. A second imbricating layer using 1- 0 Vicryl was performed. The patient requested sterilization. The right fallopian tube was followed out to the fimbriated end. The LigaSure device was used to serially clamp, cauterize, and transect along the mesosalpinx hugging adjacent to the right fallopian tube until reaching the level of the cornua. Once at the level of the cornua the right fallopian tube was transected and removed. The left fallopian tube was followed out to the fimbriated end. The LigaSure device was used to serially clamp, cauterize, and transect along the mesosalpinx hugging adjacent to the fallopian tube until reaching level of the cornua. Once the level of the cornua the fallopian tube was transected and removed. Hemostasis was noted. The uterus was picked placed back into the abdomen. Funmi was placed over the hysterotomy and lower uterine segment. Hemostasis was noted. The peritoneum was unable to be reapproximated. The subfascial space was examined and noted to be hemostatic. The fascia was closed with STRATAFIX in a running fashion. The subcutaneous space was irrigated and made hemostatic with the Bovie cautery. Subcutaneous space was reapproximated with 3-0 Vicryl. The skin was closed with 4-0 Monocryl in subcuticular fashion. Silver dressing was placed. Instrument, sharp, sponge counts were correct. The patient was taken to the recovery room in stable condition. Jordan LANCASTER was present for the entire procedure and assisted with draping the patient, delivery of the , and closure. Grafts/Implants Used: None Procedure Stop Time: 13:43 Complications None Admit VTE Documentation VTE Present on Admission: No VTE Mechan Device Prophylaxis: SCD's
[2024-01-01] MEDS: Enoxaparin 40 MG/0.4 ML Syringe SC (01:35)
[2024-01-01] MEDS: Ketorolac 30 MG/ML Syringe IV ×2 (01:35→08:17)
[2024-01-01] MEDS: 0.9% Saline Lock 10 ML Syringe IV (01:35)
[2024-01-01 05:30] VITALS: BP 130/79; PULSE 86; RESP 16; TEMP 36.2; O2SAT 99
[2024-01-01] MEDS: AMOXICILLIN 500 MG CAPSULE PO ×3 (05:31→22:01)
[2024-01-01] MEDS: Acetaminophen 500 MG Tablet 1000 MG PO ×3 (05:31→18:40)
[2024-01-01 05:55] LABS: Hematocrit 28.4 % (37-47); Mean Corp Hgb Conc 31.7 g/dL (32-36); Mean Corpuscular Hgb 25.6 pg (27.0-32.0); Mean Corpuscular Volume 80.9 fL (81-99); Mean Platelet Vol. 10.9 fl (6.2-12.0); Platelet Count 271 K/mm3 (150-450); RBC Distribution Width CV 15.4 % (11.6-14.6); RBC Distribution Width SD 45.1 fl (35.1-43.9); Red Blood Count 3.51 M/mm3 (4.2-5.4); White Blood Count 8.9 K/mm3 (4.4-11.0)
[2024-01-01 06:03] LABS: Bedside Glucose 105 mg/dL (74-106)
--- NOTE | 2024-01-01 07:16 | PCM.PN.CNM ---
Subjective Subjective Resting soundly. Pain controlled. Objective Data Objective Data Vital Signs: Vital Signs Temp Pulse Resp BP Pulse Ox O2 Del Method 97.2 F L 86 16 130/79 H 99 Room Air 01/01/24 05:30 01/01/24 05:30 01/01/24 05:30 01/01/24 05:30 01/01/24 05:30 01/01/24 05:30 Oxygen Delivery Method Room Air Weight: 224 lb Body Mass Index (BMI) 40.9 Intake & Output: Intake and Output for Last 24 Hours 12/30/23 12/31/23 01/01/24 23:59 23:59 23:59 Intake Total 2288.75 / 2288.75 Output Total 2350 / 2350 600 / 600 Balance -61.25 / -61.25 -600 / -600 Lab / Micro Data 01/01/24 05:40 Labs: Laboratory Results - last 24 hr 12/31/23 10:00: WBC 9.7, RBC 4.03 L, Hgb 10.2 L, Hct 32.7 L, MCV 81.1, MCH 25.3 L, MCHC 31.2 L, RDW Std Deviation 44.7 H, RDW Coeff of Gina 15.3 H, Plt Count 341, MPV 11.2, Immature Gran % (Auto) 0.400, Neut % (Auto) 67.8, Lymph % (Auto) 22.3, Cocke % (Auto) 8.7, Eos % (Auto) 0.6, Baso % (Auto) 0.2, Absolute Neuts (auto) 6.6, Absolute Lymphs (auto) 2.17, Nucleated RBC % 0, Syphilis Total Ab Non-reactive, Blood Type A POSITIVE, Antibody Screen NEGATIVE 12/31/23 10:40: Urine Opiates Screen NEGATIVE, Urine Methadone Screen NEGATIVE, Ur Barbiturates Screen NEGATIVE, Ur Phencyclidine Scrn NEGATIVE, Ur Amphetamines Screen NEGATIVE, MDMA (Ecstasy) Screen NEGATIVE, U Benzodiazepines Scrn NEGATIVE, Urine Cocaine Screen NEGATIVE, U Cannabinoids Screen NEGATIVE, Ur Drug Screen Comment 12/31/23 11:43: POC Glucose 81 12/31/23 14:29: POC Glucose 88 01/01/24 05:35: POC Glucose 105 01/01/24 05:40: WBC 8.9, RBC 3.51 L, Hgb 9.0 L, Hct 28.4 L, MCV 80.9 L, MCH 25.6 L, MCHC 31.7 L, RDW Std Deviation 45.1 H, RDW Coeff of Gina 15.4 H, Plt Count 271, MPV 10.9 ROS Eyes Eyes: Denies blurry vision, change in vision or spots in vision ENT HEENT: Denies dizziness or headache(s) Cardiovascular Cardiovascular: Denies abdominal pain, chest pain or dyspnea Respiratory/Chest Respiratory/Chest: Denies cough, dyspnea, shortness of breath at rest or shortness of breath with exertion Gastrointestinal Gastrointestinal: Denies abdominal pain, diarrhea or vomiting Genitourinary Genitourinary: Denies change in urinary stream, difficulty urinating or dysuria Musculoskeletal Musculoskeletal: Reports none Integumentary Integumentary: Denies rash Neurologic Neurologic: Denies dizziness, headache(s), memory loss or weakness Physical Exam Narrative Dressing is dry and intact Const alert and no apparent distress General Appearance: cooperative and comfortable Exam Limitations: no limitations HEENT normocephalic Eyes General Eye: normal appearance of both eyes Neck full ROM General: normal visual inspection Chest Chest: symmetrical chest wall rise Resp normal respiratory effort and normal air movement Effort and Inspection: symmetric chest movement Auscultation: clear to auscultation bilaterally Cardio regular rate and regular rhythm GI normal to inspection, nondistended, normoactive bowel sounds Back/Spine normal ROM Extremity full ROM and no calf tenderness General Extremity: normal exam except as noted Skin no rashes or lesions noted Neuro CN's II-XII intact bilaterally Psych mental status grossly normal Assessment & Plan (1) Gestational diabetes: (2) S/P repeat low transverse : (3) Bipolar disorder: (4) Request for sterilization: (5) History of drug use: (6) History of pre-eclampsia: (7) Gestational hypertension: (8) 37 weeks gestation of : PLAN: Plan 1 po Repeat C/S with BTL Pain control Blood pressures remain slightly elevated at times- no severe ranges - will continue to monitor Patient to stay 36 hours for GHTN diagnosis
[2024-01-01 08:00] VITALS: BP 145/75; PULSE 88; RESP 16; TEMP 36.3; O2SAT 100
[2024-01-01] MEDS: oxyCODONE 5 MG Tablet PO ×2 (08:47→15:29)
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
[2024-01-01] MEDS: Senna/Docusate Sodium 1 Tablet PO (11:14)
[2024-01-01 13:00] VITALS: BP 128/72; PULSE 97; RESP 18; TEMP 36.6; O2SAT 100
[2024-01-01] MEDS: Ibuprofen 600 MG Tablet PO ×2 (14:23→20:01)
[2024-01-01 20:02] VITALS: BP 131/99; PULSE 103; RESP 16; TEMP 36.2; O2SAT 100
[2024-01-02] MEDS: Acetaminophen 500 MG Tablet 1000 MG PO ×4 (00:06→18:41)
[2024-01-02] MEDS: Enoxaparin 40 MG/0.4 ML Syringe SC (01:51)
[2024-01-02] MEDS: Ibuprofen 600 MG Tablet PO ×4 (01:51→20:04)
[2024-01-02 01:54] VITALS: BP 135/71; PULSE 65; RESP 16; TEMP 36.1; O2SAT 100
[2024-01-02] MEDS: AMOXICILLIN 500 MG CAPSULE PO ×3 (06:03→22:03)
[2024-01-02 08:02] VITALS: BP 119/60; PULSE 82; RESP 16; TEMP 36.6; O2SAT 100
[2024-01-02] MEDS: Senna/Docusate Sodium 1 Tablet PO (08:12)
--- NOTE | 2024-01-02 10:26 | PCM.PN.OB ---
Subjective Subjective Doing well per patient and nursing staff. Ambulating and taking PO without difficulty. Voiding and passing flatus. Pain controlled. , services for assistance. Denies headache, visual changes, chest pain, shortness of breath, leg pain or increased bleeding. Lochia normal. Objective Data Objective Data Vital Signs: Vital Signs Temp Pulse Resp BP Pulse Ox O2 Del Method 97.9 F 82 16 119/60 100 Room Air 01/02/24 08:02 01/02/24 08:02 01/02/24 08:02 01/02/24 08:02 01/02/24 08:02 01/02/24 08:02 Oxygen Delivery Method Room Air Weight: 224 lb Body Mass Index (BMI) 40.9 Intake & Output: Intake and Output for Last 24 Hours 12/31/23 01/01/24 01/02/24 23:59 23:59 23:59 Intake Total 2288.75 / 2288.75 Output Total 2350 / 2350 600 / 600 Balance -61.25 / -61.25 -600 / -600 Lab / Micro Data 01/01/24 05:40 ROS Constitutional Constitutional: Reports systems reviewed and no addt'l complaints, except as documented; Denies headache(s) Eyes Eyes: Denies acute decrease in peripheral vision, blurry vision or change in vision ENT HEENT: Reports systems reviewed and no addt'l complaints, except as documented Cardiovascular Cardiovascular: Denies chest pain or dizziness Respiratory/Chest Respiratory/Chest: Denies cough, dyspnea, dyspnea on exertion, shortness of breath at rest or shortness of breath with exertion Gastrointestinal Gastrointestinal: Denies abdominal pain, diarrhea, nausea or vomiting Genitourinary Genitourinary: Denies abdominal discomfort Musculoskeletal Musculoskeletal: Denies limited range of motion Integumentary Integumentary: Reports systems reviewed and no addt'l complaints, except as documented Neurologic Neurologic: Reports systems reviewed and no addt'l complaints, except as documented Psychiatric Psychiatric: Reports systems reviewed and no addt'l complaints, except as documented Endocrine Endocrinology: Reports systems reviewed and no addt'l complaints, except as documented Hematologic/Lymphatic Hematologic/Lymphatic: Reports systems reviewed and no addt'l complaints, except as documented Allergic/Immunologic Allergic/Immunologic: Reports systems reviewed and no addt'l complaints, except as documented Physical Exam Const alert and oriented x3 General Appearance: cooperative Orientation / Consciousness: oriented to person, oriented to place and oriented to time Exam Limitations: no limitations HEENT normocephalic Head and Scalp: normal to inspection, normocephalic and atraumatic Face and Sinus: normal facial exam Eyes General Eye: normal appearance of both eyes Neck full ROM Chest Chest: symmetrical chest wall rise Resp normal respiratory effort and normal air movement Auscultation: clear to auscultation bilaterally Cardio regular rate, regular rhythm, S1 normal heart sound, S2 normal heart sound, no murmurs, no rub, no gallops and no clicks GI normal to inspection, nondistended, normoactive bowel sounds and non-tender GI Narrative: Dressing dry and intact appearance of the vagina normal Bladder / Kidney Exam: no CVA tenderness Back/Spine normal ROM Extremity normal to inspection and full ROM Skin no rashes or lesions noted Neuro oriented x3, CN's II-XII intact bilaterally and moves all extremities Sensorium / Orientation: awake, alert and oriented to person Motor Exam: clonus absent Deep Tendon Reflexes: Rt Patellar (L4): 2+ and Lt Patellar (L4): 2+ Assessment & Plan (1) Gestational diabetes: (2) S/P repeat low transverse : (3) Gestational hypertension: (4) History of pre-eclampsia: PLAN: Plan 1) POD #2 Repeat C/S 2) Pain controlled 3) 4) Vitals stable, if BP trending up again will start Procardia 5) Planning D/C home tomorrow
[2024-01-02 14:58] VITALS: BP 143/88; PULSE 98; RESP 14; TEMP 36.8; O2SAT 100
[2024-01-02] MEDS: NIFEdipine 30 MG Tablet PO (15:58)
[2024-01-02 20:05] VITALS: BP 139/81; PULSE 100; RESP 16; TEMP 36.6; O2SAT 100
[2024-01-03] MEDS: Enoxaparin 40 MG/0.4 ML Syringe SC (01:58)
[2024-01-03] MEDS: Ibuprofen 600 MG Tablet PO ×2 (01:58→08:08)
[2024-01-03 02:01] VITALS: BP 147/80; PULSE 101; RESP 16; TEMP 36.4; O2SAT 100
[2024-01-03] MEDS: Acetaminophen 500 MG Tablet 1000 MG PO ×2 (06:02→12:43)
[2024-01-03] MEDS: AMOXICILLIN 500 MG CAPSULE PO (06:02)
--- NOTE | 2024-01-03 06:33 | PCM.DC.SUM ---
Providers Date of Admission: 12/31/23 Primary Care Physician: Kitty Primary Care Phys Reason For Visit: REPEAT CSECTION DELIVERY Diagnosis Discharge Diagnosis (1) Gestational diabetes: Status: Acute Code(s): O24.419 - Gestational diabetes mellitus in , unspecified control (2) S/P repeat low transverse : Status: Acute Code(s): Z98.891 - History of uterine scar from previous surgery (3) Gestational hypertension: Status: Acute Code(s): O13.9 - Gestational [-induced] hypertension without significant proteinuria, unspecified trimester (4) History of pre-eclampsia: Status: Acute Code(s): Z87.59 - Personal history of other complications of , childbirth and the puerperium Plan 3 PO Repeat C/S Pain control BP s ranging 80's/140 Continue Procardia 30 mg XL daily Follow up this week in office for BP and incision check Medications at Discharge Home Medications vits,calcium no.78-iron fumarate-folic acid 29 mg-1 mg tablet (Prenatabs FA) 1 tab PO DAILY 11/14/17 amoxicillin 500 mg capsule 500 mg PO TID uti 12/31/23 acetaminophen 500 mg tablet 1,000 mg (2 x 500 mg) PO Q6 #0 tabs 01/02/24 ibuprofen 600 mg tablet 600 mg PO Q6H #0 tabs 01/02/24 nifedipine 30 mg tablet,extended release 24 hr 30 mg PO DAILY #30 tabs 01/02/24 sennosides 8.6 mg-docusate sodium 50 mg tablet (Stool Softener-Stimulant Laxative) 1 - 2 tab PO DAILY #0 tabs 01/02/24 Hospital Course Operations section Procedures None Summary of Care Provided Minutes Spent on Discharge: 15 Hospital Course: Repeat section. Physical Exam Narrative Patient seen at bedside. Denies headache, vision changes, SOB, dizziness, CP, or RUQ pain. Ambulating independently and voiding without difficulty. Lochia decreased. infant. Desires discharge home today. Const alert and no apparent distress General Appearance: cooperative and comfortable Exam Limitations: no limitations HEENT normocephalic Eyes General Eye: normal appearance of both eyes Neck full ROM General: normal visual inspection Chest Chest: symmetrical chest wall rise Resp normal respiratory effort and normal air movement Effort and Inspection: symmetric chest movement Auscultation: clear to auscultation bilaterally Cardio regular rate and regular rhythm GI normal to inspection, nondistended, normoactive bowel sounds Back/Spine normal ROM Extremity full ROM and no calf tenderness General Extremity: normal exam except as noted Skin no rashes or lesions noted Neuro CN's II-XII intact bilaterally Psych mental status grossly normal Weight / BMI Weight Weight: 224 lb Body Mass Index (BMI) 40.9 ABG / Lab / Microbiology Data 01/01/24 05:40 D/C Instructions Discharge Diet: No restrictions Discharge Activity: May Drive (2 weeks) and May Shower May resume sexual activity in: 6-8 weeks Weight Bearing Status: Weight bearing as tolerated Call your doctor if your incision/area has: Continuous Slow Oozing, Sudden Increased Bleeding, Increased Pain/ Swelling, Increased Redness, Foul Smelling Discharge and Swelling at the incision site Call your doctor if you observe: Fever of 101 or Higher, Numbness or Tingling, Using more than 1 pad per hour, Shortness of breath, Dizziness, Swelling in the ankles, Chest pain, Calf discomfort and Uncontrolled pain Suture Line Care: Avoid Pulling/Pushing Change Dressing in: 5 days Remove Dressing in: leave until fall off When: THIS WEEK IN OFFICE FOR BP/INCISION CHECK Meaningful Use Info Meaningful Use Meaningful Use Diagnoses (Choose all that apply): None applicable Ischemic Stroke Statin Dosing Therapy Reference: STATIN DOSE THERAPY REFERENCE: * Patients > 75 years receive moderate or high dose statin therapy. * Patients 75 years or YOUNGER should receive HIGH intensity statin dose unless contraindicated. You will be required to document reason for non-treatment if statin daily dose does not meet guidelines. HIGH DOSE STATIN THERAPY DAILY Atorvastatin > than or = to 40 mg Rosuvastatin > than or = to 20 mg Amlodipine + Atorvastatin > than or = to 2.5/40 mg Ezetimibe + Simvastatin 10/80 mg Simvastatin 80mg Discharge Plan Admission Admit Date/Time: 12/31/23 09:52 Primary Reason for Your Visit: Repeat Section Attending Provider: Ana M Navarro Primary Care Provider: Care Physician,No Primary Discharge Orders/Prescriptions Prescriptions: New nifedipine 30 mg Tablet Extended Release 24hr 30 mg PO DAILY Qty: 30 2RF sennosides-docusate sodium [Stool Softener-Stimulant Laxat] 8.6-50 mg Tablet 1 - 2 tab PO DAILY Qty: 0 0RF acetaminophen 500 mg Tablet 1,000 mg PO Q6 Qty: 0 0RF ibuprofen 600 mg Tablet 600 mg PO Q6H Qty: 0 0RF Continued Prenatabs FA 1 TABLET tablet 1 tab PO DAILY amoxicillin 500 mg capsule 500 mg PO TID Discontinued aspirin [Aspirin Childrens] 81 mg tablet,chewable 1 tab PO DAILY Referrals / Follow Up: Mell Slater CNM [Med Staff - Adv Practice Prof] - Care Physician,No Primary [Primary Care Provider] - Disposition Disposition (needs filled in before D/C Order can be placed): Home, Self Care
[2024-01-03 08:10] VITALS: BP 125/78; PULSE 95; RESP 14; TEMP 36.4; O2SAT 100
[2024-01-03] MEDS: Senna/Docusate Sodium 1 Tablet PO (11:03)
[2024-01-03] MEDS: NIFEdipine 30 MG Tablet PO (11:03)
[2024-01-03 14:04] VITALS: BP 129/82; PULSE 95; RESP 14; TEMP 36.7; O2SAT 99
--- NOTE | 2024-01-07 11:13 | NURSING ---
Follow up phone call questions asked per Dennise Hawley CNP, IBCLC at visit. States she is doing well since being home, bleeding is decreasing, and denies any pain. Infant is nursing well, 8-12 times per day without difficulty.
== END 2024-01-03 14:20 | disposition home or self-care (01) | DRG 539 ==
PROVIDERS: Admitting Provider Obstetrics & Gynecology; Referring Provider Obstetrics & Gynecology; Visit Provider Obstetrics & Gynecology
PROC: 10D00Z1 Extraction of Products of Conception, Low, Open Approach (ICD-10-PCS; CPT 59514; principal; 2023-12-31 11:45)
DX: O34.211 Maternal care for low transverse scar from previous cesarean delivery (principal); O13.4 Gestational [pregnancy-induced] hypertension without significant proteinuria, complicating childbirth; O24.420 Gestational diabetes mellitus in childbirth, diet controlled; O69.81X0 Labor and delivery complicated by cord around neck, without compression, not applicable or unspecified; Z37.0 Single live birth; Z3A.37 37 weeks gestation of pregnancy; Z87.59 Personal history of other complications of pregnancy, childbirth and the puerperium; Z30.2 Encounter for sterilization
CPT/HCPCS: 59050; 80307; 82962; 85025; 85027; 86780; 86850; 86900; 86901; 88302; 99221; A4216; G0378; J2405

== ENCOUNTER 2024-07-25 11:25 | Emergency (ER) | payer MEDICAID, SELFPAY ==
[2024-07-25 11:26] VITALS: BP 130/74; PULSE 83; RESP 16; TEMP 36.9; O2SAT 100; BMI 35.3
[2024-07-25 12:37] LABS: Mucous, Urine 0 SEEN /hpf (<or=2+)
[2024-07-25 12:45] LABS: Color, Urine Yellow (Yellow); Glucose, Dipstick Normal (Normal); Ketone-Dipstick Negative (Negative); Leukocyte Esterase-Dipstick 25 /ul (Negative); Nitrite-Dipstick Negative (Negative); Occult Blood-Urine 50 /ul (Negative); Protein-Dipstick 15 mg/dl (Negative); Urine Bilirubin Dipstick Negative (Negative); Urine Clarity Clear (Clear); Urine Urobilinogen Normal (Normal); Urine pH 6.5 (5.0 - 8.0)
[2024-07-25 12:50] LABS: Bacteria 1+ /hpf (None Seen); Red Blood Cells-Urine 0-5 SEEN /hpf (0-5); Squamous Epithelial Cells - UA 0-5 SEEN /hpf (5-10); White Blood Cells 0-5 SEEN /hpf (0-5)
[2024-07-25 12:51] LABS: Internal QC Validated? YES +Cl - CLEAR BKGD; Pregnancy, Urine Negative Negative
[2024-07-25 13:25] VITALS: PULSE 76; RESP 14
[2024-07-25] MEDS: Doxycycline 100 MG CAPSULE PO (14:09)
[2024-07-25] MEDS: Ceftriaxone 500 MG Vial IM (14:32)
[2024-07-25 14:35] VITALS: BP 130/74; PULSE 76; RESP 14; TEMP 36.9; O2SAT 100
== END 2024-07-25 14:37 | disposition home or self-care (01) ==
PROVIDERS: Emergency Provider Surgery; Visit Provider Surgery
DX: R30.0 Dysuria (principal); N89.8 Other specified noninflammatory disorders of vagina; A64 Unspecified sexually transmitted disease
CPT/HCPCS: 81001; 81025; 87086; 87210; 87491; 87591; 96372; 99282